=== PATIENT | male | born 1990 | race Caucasian/White ===

== ENCOUNTER 2023-04-09 22:46 | Emergency (ER) | payer MEDICAID ==
[~2023-04-09] VITALS: Ht 172.7 cm; Wt 79.4 kg
--- NOTE | 2023-04-09 23:00 | NUR ---
Dr. Sanderson at bedside for MSE.
[2023-04-09] MEDS ORDERED: HYDROCODONE/APAP 10-325 MG TABLET ONE (23:07)
[2023-04-09] MEDS ORDERED: HYDROCODONE/APAP 10-325 MG TABLET PO ONE (23:15)
[2023-04-09] MEDS ORDERED: HYDR-3980 PO (23:46)
--- NOTE | 2023-04-09 23:55 | NUR ---
Patient discharged to home in stable condition. Written and verbal after care instructions given. Patient verbalizes understanding of instructions. Stressed follow up or return to ER for worsening s/s. Patient out of ER with steady gait, no acute signs of distress, VSS, all belongings taken.
[2023-04-09 23:56] VITALS: BP 143/75
== END 2023-04-09 23:56 | disposition home or self-care (01) ==
LOC: ER 22:59
DX: S16.1XXA Strain of muscle, fascia and tendon at neck level, initial encounter (principal); M25.512 Pain in left shoulder; Z79.899 Other long term (current) drug therapy; V43.52XA Car driver injured in collision with other type car in traffic accident, initial encounter; Y93.89 Activity, other specified; Y92.89 Other specified places as the place of occurrence of the external cause; Y99.8 Other external cause status
CPT/HCPCS: 72072; A4663